=== PATIENT | female | born 1960 | race Caucasian/White ===

== ENCOUNTER 2018-05-25 10:40 | Emergency (ER) | payer OTHER ==
[~2018-05-25] VITALS: Ht 180.3 cm; Wt 68.5 kg
--- NOTE | 2018-05-25 11:52 | Diagnostic Imaging Report ---
EXAMINATION: Head CT HISTORY: Right facial droop, right facial weakness and right ear pain for last 3 days COMPARISON: None. TECHNIQUE: Multidetector axial images were obtained without contrast from the foramen magnum to the vertex . The images were reconstructed using brain and bone algorithms. Thin section brain images were reformatted into coronal and sagittal planes. Intravenous contrast: None. Image quality: Motion/streaking artifact limits the evaluation of the skull base and posterior cranial fossa. Dose modulation, iterative reconstruction, and/or weight based adjustment of the mA/kV was utilized to reduce the radiation dose to as low as reasonably achievable. FINDINGS: Parenchyma: 1. A few bilateral frontal white matter scattered hypodensities, likely minimal chronic microvascular ischemic changes or perhaps migraine related. Otherwise there are no areas of abnormal density in the brain parenchyma. 2. No mass or hemorrhage. No CT evidence of acute territorial vascular insult. Extra-axial spaces:No abnormal density. No extra-axial fluid collections Brain volume: Normal for age. Ventricles: No hydrocephalus or displacement. Arteries: No density suggestive of thrombus. Dural sinuses: No abnormal density. Extra-axial spaces: No abnormal density. Foramen magnum: No mass, Chiari malformation, or basilar invagination. Sella: No obvious mass. Paranasal/mastoid sinuses: Imaged portions unremarkable. Skull/Scalp: No lytic or blastic lesions. No fractures. IMPRESSION: 1. No intracranial hemorrhage or acute cortical infarct. 2. Minimal chronic microvascular ischemic changes. Signed by: Dr. Jessica Coronel M.D. on 05/25/2018 11:49 AM
[2018-05-25 13:21] VITALS: BP 137/75
== END 2018-05-25 13:22 | disposition home or self-care (01) ==
LOC: FSED 10:40
DX: G51.0 Bell's palsy (principal)
CPT/HCPCS: 70450; 99284